=== PATIENT | male | born 1985 | race African-American/Black ===

== ENCOUNTER → 2023-04-05 10:44 | Outpatient (CLI) | payer OTHER, SELFPAY ==
--- NOTE | 2023-04-05 | DI.MRI.S_ITS ---
PROCEDURE: MR FOOT LT WO/W CON INDICATIONS: Pain in left toe(s) TECHNIQUE: Noncontrast sagittal T1 spin echo and T2 fast spin echo with fat saturation, long-axis T1 spin echo and T2 fast spin echo with fat saturation; short-axis T1 spin echo, proton density fast spin echo, and T2 fast spin echo with fat saturation through the forefoot. Post-contrast short axis, long axis, and sagittal T1 spin echo with fat saturation through the forefoot. COMPARISON: None. FINDINGS: Image quality: Excellent. Bones and joints: No suspicious osseous enhancement. Mild osteoarthritic changes are seen in 1st interphalangeal joint and 1st MTP joint with joint space narrowing and subchondral sclerosis. No bone marrow contusions or metatarsal stress fractures. The sesamoid bones appear in expected positions, without internal edema. No metatarsophalangeal joint degeneration. No intraosseous lesions. Soft tissues: No suspicious soft tissue enhancement. Small amount of fluid is seen within soft tissue between 1st and 2nd metatarsal head concerning for bursitis. Small amount of fluid in 2nd interspace is also noted. The visualized plantar foot muscles demonstrate normal signal and bulk. Visualized flexor and extensor tendons appear intact, without tenosynovitis. The distal insertions of the peroneus brevis and longus tendons appear intact. The principal Lisfranc ligament appears intact. Sagittal images demonstrate low-grade partial-thickness tear involving lateral sesamoid phalangeal ligament at its distal insertion . No evidence of gross plantar plate tear in 2nd through 5th toe is seen. IMPRESSION: 1. Mild osteoarthritic changes in great toe as above. No fracture or dislocation. No metatarsal stress fractures. No area of abnormal intraosseous enhancement. 2. No discrete enhancing soft tissue mass is seen. Small amount of intermetatarsal soft tissue fluid signal within 1st and 2nd interspace concerning for low-grade bursitis. 3. Finding may represent low-grade turf toe injury with partial-thickness tear involving lateral sesamoid phalangeal ligament of 1st MTP joint. Dictated by: Miguel Motley M.D. on 04/05/2023 at 13:21 Approved by: Miguel Motley M.D. on 04/05/2023 at 14:25
== END ==
PROVIDERS: Referring Provider Podiatrist; Visit Provider Podiatrist
DX: M79.675 Pain in left toe(s) (principal)
CPT/HCPCS: 73720